=== PATIENT | female | born 1990 | race Hispanic/Latino ===

== ENCOUNTER 2019-12-22 22:48 | Emergency (ER) | payer BC, OTHER ==
--- OUTSIDE RECORDS SUMMARY | 2019-12-22 22:51 | XMS REPORT | Continuity of Care Document ---
:1990 Author Organization [facility] t Address [address] [place] [address] Care Team Providers Name Role Phone Unavailable Unavailable Unavailable Problems This patient has no known problems. Allergies, Adverse Reactions, Alerts This patient has no known allergies or adverse reactions. Medications This patient has no known medications. Procedures This patient has no known procedures. Encounters Start End Encounter Admission Attending Care Care Encounter Source Date/Time Date/Time Type Type Clinicians Facility Department ID 2018-11-02 Inpatient [facility] [id number] MHB L 12:24:57 2019-01-26 2019-01-26 Outpatient [facility] [id number] [facility]BL 08:19:00 08:19:00 2018-12-07 2018-12-07 Outpatient [facility] [id number] [facility]BL 17:56:00 17:56:00 2018-11-25 2018-11-25 Outpatient [facility]BL [id number] [facility]BL 13:24:00 13:24:00 2018-08-15 2018-08-15 Outpatient [facility] [id number] MHBL 09:15:00 09:15:00 Results This patient has no known results.
[2019-12-22 23:59] LABS: Urine Blood TRACE (NEG); Urine Glucose NEGATIVE (NEG); Urine Protein NEGATIVE (NEG)
[2019-12-23] MEDS ORDERED: METOCLOPRAMIDE 10 MG/2mL INJ ONE (00:01)
[2019-12-23] MEDS ORDERED: DIPHENHYDRAMINE 50 MG/ML VIAL ONE (00:01)
[2019-12-23] MEDS ORDERED: NA CHLORIDE 0.9% 1,000 ML ONE (00:02)
[2019-12-23] MEDS ORDERED: NA CHLORIDE 0.9% 50 ML IV ONE (00:02)
[2019-12-23 00:03] LABS: Absolute Lymphocytes (CBC) 3.4 K/uL (0.7-4.9); Basophils % 0.4 % (0-1.3); Hematocrit 39.8 % (36.0-45.0); Lymphocytes % 47.1 % (15.3-44.8); MPV 9.3 fL (7.6-11.3); RBC Red Blood Cell Count 4.33 M/uL (3.86-4.86)
[2019-12-23 00:20] LABS: ALT/SGPT 25 U/L (12-78); AST/SGOT 14 U/L (15-37); Albumin 4.1 g/dL (3.4-5.0); Alkaline Phosphatase 72 U/L (45-117); BUN Blood Urea Nitrogen 14 mg/dL (7-18); Bicarbonate 23 mmol/L (21-32); Bilirubin Direct < 0.1 mg/dL (0-0.2); Bilirubin Total 0.2 mg/dL (0.2-1.0); Glucose Level 96 mg/dL (74-106); Potassium 3.6 mmol/L (3.5-5.1); Protein, Total 8.2 g/dL (6.4-8.2); Sodium Level 140 mmol/L (136-145)
[2019-12-23 00:24] LABS: Blood Morphology Comment NOT SEEN (NOT SEEN); Platelet Estimate ADEQ
--- NOTE | 2019-12-23 01:57 | EDPHYS ---
Physician Documentation [facility] Name: Maddison Mccauley Age: 29 yrs Sex: Female : 1990 Arrival Date: 12/22/2019 Time: 22:51 Bed 16 Private MD: ED Physician Hilario Ross HPI: 12/22 00:07 This 29 yrs old Female presents to ER via Ambulatory with complaints of mh7 Headache. 00:07 The patient describes the headache as intermittent, throbbing, waxing and waning. mh7 Onset: The symptoms/episode began/occurred 2 week(s) ago. 00:08 The patient complains of pain to the left side of the back of head. Associated signs mh7 and symptoms: Pertinent positives: Photophobia Pertinent negatives: altered mental status, dizziness, fever, malaise, nausea, neck stiffness, paresthesias, rash, sinus congestion, sinus tenderness, vision changes, vision loss, vomiting, weakness, vertigo. Severity of symptoms: At its worst the pain was moderate, 5 day(s) ago, in the emergency department the pain has improved, moderately. Headache History: The patient has had previous headaches and this one is similar to previous episodes. The symptoms are alleviated by Darkened room, quiet, remaining still, the symptoms are aggravated by lights, movement, noise. The patient has experienced similar episodes in the past, multiple times. Historical: - Allergies: 12/21 23:06 clindamycin HCl; ls4 - Home Meds: 23:06 Excedrin Migraine 250-250-65 mg oral tab [Active]; ls4 - PMHx: 23:06 Migraines; Ovarian cyst; ls4 - PSHx: 23:06 tubes removed.; D \T\ C; ls4 - Immunization history:: Adult Immunizations up to date. - Social history:: Smoking status: Patient denies any tobacco usage or history of. ROS: 12/22 00:08 Constitutional: Negative for fever, chills, and weight loss, Eyes: Negative for injury, mh7 pain, redness, and discharge, ENT: Negative for injury, pain, and discharge, Neck: Negative for injury, pain, and swelling, Cardiovascular: Negative for chest pain, palpitations, and edema, Respiratory: Negative for shortness of breath, cough, wheezing, and pleuritic chest pain, Abdomen/GI: Negative for abdominal pain, nausea, vomiting, diarrhea, and constipation, Back: Negative for injury and pain, : Negative for injury, bleeding, discharge, and swelling, MS/Extremity: Negative for injury and deformity, Skin: Negative for injury, rash, and discoloration, Psych: Negative for depression, anxiety, suicide ideation, homicidal ideation, and hallucinations, Allergy/Immunology: Negative for hives, rash, and allergies, Endocrine: Negative for neck swelling, polydipsia, polyuria, polyphagia, and marked weight changes, Hematologic/Lymphatic: Negative for swollen nodes, abnormal bleeding, and unusual bruising. Exam: 00:08 Eyes: Pupils equal round and reactive to light, extra-ocular motions intact. Lids and mh7 lashes normal. Conjunctiva and sclera are non-icteric and not injected. Cornea within normal limits. Periorbital areas with no swelling, redness, or edema. ENT: Nares patent. No nasal discharge, no septal abnormalities noted. Tympanic membranes are normal and external auditory canals are clear. Oropharynx with no redness, swelling, or masses, exudates, or evidence of obstruction, uvula midline. Mucous membranes moist. Neck: Trachea midline, no thyromegaly or masses palpated, and no cervical lymphadenopathy. Supple, full range of motion without nuchal rigidity, or vertebral point tenderness. No Meningismus. Chest/axilla: Normal chest wall appearance and motion. Nontender with no deformity. No lesions are appreciated. Cardiovascular: Regular rate and rhythm with a normal S1 and S2. No gallops, murmurs, or rubs. Normal PMI, no JVD. No pulse deficits. Respiratory: Lungs have equal breath sounds bilaterally, clear to auscultation and percussion. No rales, rhonchi or wheezes noted. No increased work of breathing, no retractions or nasal flaring. Abdomen/GI: Soft, non-tender, with normal bowel sounds. No distension or tympany. No guarding or rebound. No evidence of tenderness throughout. Back: No spinal tenderness. No costovertebral tenderness. Full range of motion. Skin: Warm, dry with normal turgor. Normal color with no rashes, no lesions, and no evidence of cellulitis. MS/ Extremity: Pulses equal, no cyanosis. Neurovascular intact. Full, normal range of motion. Neuro: Awake and alert, GCS 15, oriented to person, place, time, and situation. Cranial nerves II-XII grossly intact. Motor strength 5/5 in all extremities. Sensory grossly intact. Cerebellar exam normal. Normal gait. Psych: Awake, alert, with orientation to person, place and time. Behavior, mood, and affect are within normal limits. 00:08 Constitutional: The patient appears in no acute distress, alert, awake, uncomfortable. 00:08 Head/face: Noted is tenderness, that is moderate, of the left side of the back of head. Vital Signs: 12/21 23:01 BP 142 / 104; Pulse 98; Resp 16; Temp 98.4(O); Pulse Ox 99% on R/A; Weight 83.91 kg; ls4 Height 5 ft. 2 in. (157.48 cm); Pain 6/10; 23:30 BP 132 / 102; Pulse 77; Resp 16; Pulse Ox 100% on R/A; vc 12/22 01:00 BP 117 / 89; Pulse 66; Resp 16; Pulse Ox 97% on R/A; vc 02:00 BP 116 / 90; Pulse 67; Resp 16; Pulse Ox 96% on R/A; vc 12/21 23:01 Body Mass Index 33.84 (83.91 kg, 157.48 cm) ls4 Marlene Coma Score: 01:55 Eye Response: spontaneous(4). Verbal Response: oriented(5). Motor Response: obeys mh7 commands(6). Total: 15. MDM: 12/21 23:31 Patient medically screened. mh7 12/22 01:55 Differential diagnosis: cluster headache, intracerebral hemorrhage, migraine, tension mh7 headache. Data reviewed: vital signs, nurses notes, old medical records, lab test result(s), CBC, electrolytes, urinalysis, radiologic studies, CT scan. Data interpreted: Pulse oximetry: on room air is 97 %. Interpretation: normal. Counseling: I had a detailed discussion with the patient and/or guardian regarding: the historical points, exam findings, and any diagnostic results supporting the discharge/admit diagnosis, lab results, radiology results, the need for outpatient follow up, a neurologist, to return to the emergency department if symptoms worsen or persist or if there are any questions or concerns that arise at home. Response to treatment: the patient's symptoms have resolved after treatment, the patient's blood pressure is in an acceptable range, mental status has returned to baseline, the patient no longer shows bradycardia, the patient is not short of breath, the patient is not tachycardic, the patient's pain is gone, the patient's temperature has normalized. 07:06 Response to treatment: the patient is now symptom free, patient is well hydrated. [facility] 12/21 23:34 Order name: CBC with Diff; Complete Time: 00:37 [facility] 12/21 23:34 Order name: Basic Metabolic Panel; Complete Time: 00:37 [facility] 12/21 23:34 Order name: LFT's; Complete Time: 00:37 [facility] 12/21 23:56 Order name: Urine Dipstick--Ancillary (enter results); Complete Time: 00:37 [facility] 12/21 23:56 Order name: Urine --Ancillary (enter results); Complete Time: 00:37 [facility] 12/22 00:08 Order name: Manual Differential; Complete Time: 00:37 [facility] 12/21 23:34 Order name: Urine Dipstick-Ancillary (obtain specimen); Complete Time: 23:56 [facility] 12/21 23:34 Order name: Urine Test (obtain specimen); Complete Time: 23:56 [facility] 12/21 23:34 Order name: CT Head Brain wo Cont [facility] Administered Medications: 12/21 23:51 Drug: NS 0.9% 1000 ml Route: IV; Rate: 1000 ml; Site: left antecubital; vc 23:51 Drug: Reglan 10 mg Route: IVP; Site: left antecubital; vc 23:51 Drug: Benadryl 50 mg Route: IVP; Site: left antecubital; vc Point of Care Testing: Urine : 23:56 hCG Reading: Negative; Control Reading: Positive; jp3 Disposition: 12/22 07:06 Co-signature as Attending Physician, Hilario Ross MD. 7 Disposition: 12/23/19 01:57 Discharged to Home. Impression: Headache. - Condition is Stable. - Discharge Instructions: General Headache Without Cause, [id number]. - Prescriptions for Fioricet 50- 325-40 mg Oral tablet - take 1 tablet by ORAL route every 6 hours As needed as needed not to exceed 6 tablets per 24hrs; 15 tablet. - Medication Reconciliation Form, Thank You Letter, Antibiotic Education, Prescription Opioid Use form. - Follow up: Elsa Umanzor MD; When: 1 - 2 days; Reason: Worsening of condition, Recheck today's complaints. Follow up: Kenny Green MD; When: 1 - 2 days; Reason: Worsening of condition, Recheck today's complaints. - Problem is an acute exacerbation. - Symptoms have improved. Signatures: Dispatcher [employer] EDMS Liz Noriega RN RN ls4 Mehnaz Connell RN RN vc Hilario Ross MD MD mh7 Corrections: (The following items were deleted from the chart) 00:09 00:07 The patient complains of pain to the left occipital area, 7 7 02:17 01:57 12/23/2019 01:57 Discharged to Home. Impression: Headache. Condition is Stable. vc Forms are Medication Reconciliation Form, Thank You Letter, Antibiotic Education, Prescription Opioid Use. Follow up: Elsa Umanzor; When: 1 - 2 days; Reason: Worsening of condition, Recheck today's complaints. Follow up: Kenny Green; When: 1 - 2 days; Reason: Worsening of condition, Recheck today's complaints. Problem is an acute exacerbation. Symptoms have improved. mh7
--- NOTE | 2019-12-23 01:57 | ER ---
Nurse's Notes [facility] Name: Maddison Mccauley Age: 29 yrs Sex: Female : 1990 Arrival Date: 12/22/2019 Time: 22:51 Bed 16 Private MD: Diagnosis: Headache Presentation: 12/21 23:01 Chief complaint: Patient states: Really bad headache for two weeks. sharp pain on left ls4 parietal area of head. Coronavirus screen: At this time, the client does not indicate any symptoms associated with coronavirus-19. Ebola Screen: No symptoms or risks identified at this time. Initial Sepsis Screen: Does the patient meet any 2 criteria? No. Patient's initial sepsis screen is negative. Does the patient have a suspected source of infection? No. Patient's initial sepsis screen is negative. Risk Assessment: Do you want to hurt yourself or someone else? Patient reports no desire to harm self or others. Onset of symptoms was December 08, 2019 at 10:00. 23:01 Method Of Arrival: Ambulatory ls4 23:01 Acuity: DEON 3 ls4 23:04 Note when the sharp pain hits she has sweat drip and her eye twitches. ls4 Triage Assessment: 23:06 Headache History: The patient has had previous headaches and this one is different than ls4 previous episodes. General: Appears uncomfortable, Behavior is calm, cooperative, flat. Pain: Pain currently is 6 out of 10 on a pain scale. Neuro: Level of Consciousness is Oriented to person, place, time, situation, Ultrasound Technologist Sonographer are equal bilaterally Moves all extremities. Gait is steady, Speech is normal, Facial symmetry appears normal, Reports headache in left parietal area, since 2 weeks. Respiratory: Airway is patent Respiratory effort is even, unlabored, Respiratory pattern is regular, Denies cough, shortness of breath labored breathing, pain with respiration, pain with cough, pain with movement. 23:15 Pain: Pain began 2 weeks ago Also complains of photophobia. vc Historical: - Allergies: 23:06 clindamycin HCl; ls4 - Home Meds: 23:06 Excedrin Migraine 250-250-65 mg oral tab [Active]; ls4 - PMHx: 23:06 Migraines; Ovarian cyst; ls4 - PSHx: 23:06 tubes removed.; D \T\ C; ls4 - Immunization history:: Adult Immunizations up to date. - Social history:: Smoking status: Patient denies any tobacco usage or history of. Screenin:15 Abuse screen: Denies threats or abuse. Nutritional screening: No deficits noted. vc Tuberculosis screening: No symptoms or risk factors identified. Fall Risk None identified. Assessment: 23:30 General: Appears in no apparent distress. uncomfortable, Behavior is calm, cooperative, vc appropriate for age. Pain: Complains of pain in left side of the back of head Pain does not radiate. Pain currently is 7 out of 10 on a pain scale. Quality of pain is described as dull, pressure. Neuro: Level of Consciousness is awake, alert, obeys commands, Oriented to person, place, time, situation. Cardiovascular: Capillary refill < 3 seconds Patient's skin is warm and dry. Respiratory: Airway is patent Respiratory effort is even, unlabored, Respiratory pattern is regular, symmetrical. GI: No signs and/or symptoms were reported involving the gastrointestinal system. : No signs and/or symptoms were reported regarding the genitourinary system. Reports. EENT:. Derm: Skin is intact, is healthy with good turgor. 12/22 00:30 Reassessment: Patient and/or family updated on plan of care and expected duration. Pain vc level reassessed. Patient states symptoms have improved. 01:26 Reassessment: Patient and/or family updated on plan of care and expected duration. Pain vc level reassessed. Patient is alert, oriented x 3, equal unlabored respirations, skin warm/dry/pink. Patient states symptoms have improved. 02:00 Reassessment: Patient and/or family updated on plan of care and expected duration. Pain vc level reassessed. Patient is alert, oriented x 3, equal unlabored respirations, skin warm/dry/pink. Patient states feeling better. Patient states symptoms have improved. Vital Signs: 12/21 23:01 BP 142 / 104; Pulse 98; Resp 16; Temp 98.4(O); Pulse Ox 99% on R/A; Weight 83.91 kg; ls4 Height 5 ft. 2 in. (157.48 cm); Pain 6/10; 23:30 BP 132 / 102; Pulse 77; Resp 16; Pulse Ox 100% on R/A; vc 12/22 01:00 BP 117 / 89; Pulse 66; Resp 16; Pulse Ox 97% on R/A; vc 02:00 BP 116 / 90; Pulse 67; Resp 16; Pulse Ox 96% on R/A; vc 12/21 23:01 Body Mass Index 33.84 (83.91 kg, 157.48 cm) ls4 Mazon Coma Score: 01:55 Eye Response: spontaneous(4). Verbal Response: oriented(5). Motor Response: obeys 7 commands(6). Total: 15. ED Course: 12/21 22:51 Patient arrived in ED. bp1 23:04 Triage completed. ls4 23:15 Arm band placed on. vc 23:15 Patient has correct armband on for positive identification. Bed in low position. Call vc light in reach. Pulse ox on. NIBP on. Warm blanket given. 23:17 Hilario Ross MD is Attending Physician. mh7 23:18 Mehnaz Connell, RN is Primary Nurse. vc 23:56 Urine collected: clean catch specimen, clear, yumiko colored. jp3 12/22 01:18 CT Head Brain wo Cont In Process Unspecified. EDMS 01:56 Elsa Umanzor MD is Referral Physician. mh7 01:56 Kenny Green MD is Referral Physician. 7 02:00 No provider procedures requiring assistance completed. IV discontinued, intact, vc bleeding controlled, No redness/swelling at site. Pressure dressing applied. Administered Medications: 12/21 23:51 Drug: NS 0.9% 1000 ml Route: IV; Rate: 1000 ml; Site: left antecubital; vc 23:51 Drug: Reglan 10 mg Route: IVP; Site: left antecubital; vc 23:51 Drug: Benadryl 50 mg Route: IVP; Site: left antecubital; vc Point of Care Testing: Urine : 23:56 hCG Reading: Negative; Control Reading: Positive; jp3 Outcome: 12/22 01:57 Discharge ordered by . mh7 02:15 Discharged to home ambulatory. vc 02:15 Condition: good 02:15 Discharge instructions given to patient, Instructed on discharge instructions, follow up and referral plans. medication usage, Demonstrated understanding of instructions, follow-up care, medications, Prescriptions given X 1. 02:17 Patient left the ED. vc Signatures: Dispatcher [employer] EDAR Hector Jacobson jp3 Liz Noriega RN RN ls4 Mehnaz Connell RN RN vc Kathleen Valentino Maurice, MD MD 7
--- NOTE | 2019-12-24 12:56 | RAD REPORT ---
EXAM DESCRIPTION: CT - Head Brain Wo Cont - 12/23/2019 5:50 am CLINICAL HISTORY: The patient is 29 years old and is Female; HEADACHE TECHNIQUE: Axial computed tomography images of the head/brain without intravenous contrast. Sagitt al and coronal reformatted images were created and reviewed. This CT exam was performed using one o r more of the following dose reduction techniques: automated exposure control, adjustment of the mA and/or kV according to patient size, and/or use of iterative reconstruction technique. COMPARISON: No relevant prior studies available. FINDINGS: BRAIN: Unremarkable. The holden-white matter differentiation is preserved . No hemorrhag e. No significant white matter disease. No edema. No extra-axial fluid collections. VENTRICLES: Unremarkable. No ventriculomegaly. BONES/JOINTS: No acute fracture. SOFT TISSUES: Unremarkable. SINUSES: Unremarkable as visualized. No acute sinusitis. MASTOID AIR CELLS: Unremarkable as visualized. No mastoid effusion. ORBITS: Unremarkable as visualized. IMPRESSION: No acute intracranial findings. Electronically signed by: Avis Rivero MD 12/23/2019 1:35 AM CDT Due to temporary technical issues with the PACS/Fluency reporting system, reports are being signed by the in house radiologist without review as a courtesy to ensure prompt reporting. The interpreting r adiologist is fully responsible for the content of the report.
[2019-12-26 10:15] VITALS: TEMP 98.4
[2019-12-26 10:18] VITALS: BP 117/89; O2SAT 97
== END 2019-12-23 02:17 | disposition home or self-care (01) ==
LOC: ER 22:48
DX: R51 Headache (principal); Z88.3 Allergy status to other anti-infective agents
CPT/HCPCS: 36415; 70450; 80048; 80076; 81003; 81025; 85025; 96374; 96375; 99284

== ENCOUNTER 2023-10-06 22:25 | Emergency (ER) | payer BC, SELFPAY ==
--- OUTSIDE RECORDS SUMMARY | 2023-10-06 22:45 | XMS REPORT | Continuity of Care Document ---
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 Quad .5 mL IM 6+ MO (FLUZONE/FLULAVAL/F LUARIX) Unknown Completed [facility] HPV9 Unknown Completed [facility] HPV9 Unknown Completed [facility] HPV Unknown Completed [facility] TDAP Unknown Completed [facility] Influenza Virus Vaccine Quad IM 3+ YRS Unknown Completed [facility] Influenza Virus Vaccine Quad .5 mL IM 6+ MO (FLUZONE/FLULAVAL/F LUARIX) Unknown Completed [facility] HPV9 Unknown Completed [facility] HPV9 Unknown Completed [facility] HPV Unknown Completed [facility] TDAP Unknown Completed [facility] Influenza Virus Vaccine Quad IM 3+ YRS Unknown Completed [facility] Influenza Virus Vaccine Quad .5 mL IM 6+ MO (FLUZONE/FLULAVAL/F LUARIX) Unknown Completed [facility] HPV9 Unknown Completed [facility] HPV9 Unknown Completed [facility] HPV Unknown Completed [facility] TDAP Unknown Completed [facility] Influenza Virus Vaccine Quad IM 3+ YRS Unknown Completed [facility] Influenza Virus Vaccine Quad .5 mL IM 6+ MO (FLUZONE/FLULAVAL/F LUARIX) Unknown Completed [facility] HPV9 [address] Completed [facility] HPV9 [address] Completed [facility] HPV Unknown Completed [facility] TDAP Unknown Completed [facility] Influenza Virus Vaccine Quad IM 3+ YRS Unknown Completed [facility] Influenza Virus Vaccine Quad .5 mL IM 6+ MO (FLUZONE/FLULAVAL/F LUARIX) Unknown Completed [facility] HPV9 Unknown Completed [facility] HPV9 Unknown Completed [facility] HPV Unknown Completed [facility] TDAP Unknown Completed [facility] Influenza Virus Vaccine Quad IM 3+ YRS Unknown Completed [facility] Influenza Virus Vaccine Quad .5 mL IM 6+ MO (FLUZONE/FLULAVAL/F LUARIX) Unknown Completed [facility] HPV9 [address] Completed [facility] HPV9 [address] Completed [facility] HPV Unknown Completed [facility] TDAP Unknown Completed [facility] Influenza Virus Vaccine Quad IM 3+ YRS Unknown Completed [facility] Influenza Virus Vaccine Quad .5 mL IM 6+ MO (FLUZONE/FLULAVAL/F LUARIX) Unknown Completed [facility] HPV9 Unknown Completed [facility] HPV9 [address] Completed [facility] HPV Unknown Completed [facility] TDAP Unknown Completed [facility] Influenza Virus Vaccine Quad IM 3+ YRS Unknown Completed [facility] Influenza Virus Vaccine Quad .5 mL IM 6+ MO (FLUZONE/FLULAVAL/F LUARIX) Unknown Completed [facility] HPV9 [address] Completed [facility] HPV9 [address] Com[address] [facility] HPV Unknown Completed [facility] TDAP Unknown Completed [facility] Influenza Virus Vaccine Quad IM 3+ YRS Unknown Completed [facility] Influenza Virus Vaccine Quad .5 mL IM 6+ MO (FLUZONE/FLULAVAL/F LUARIX) Unknown Completed [facility] HPV9 [address] Completed [facility] HPV9 [address] Completed [facility] HPV Unknown Completed [facility] TDAP Unknown Completed [facility] Influenza Virus Vaccine Quad IM 3+ YRS Unknown Completed [facility] Influenza Virus Vaccine Quad .5 mL IM 6+ MO (FLUZONE/FLULAVAL/F LUARIX) Unknown Completed [facility] HPV9 Unknown Completed [facility] HPV9 [address] Com[address] [facility] HPV Unknown Completed [facility] TDAP Unknown Completed [facility] Influenza Virus Vaccine Quad IM 3+ YRS Unknown Completed [facility] Influenza Virus Vaccine Quad .5 mL IM 6+ MO (FLUZONE/FLULAVAL/F LUARIX) Unknown Completed [facility] HPV9 [address] Completed [facility] HPV9 [address] Com[address] [facility] HPV Unknown Completed [facility] TDAP Unknown Completed [facility] Influenza Virus Vaccine Quad IM 3+ YRS Unknown Completed [facility] Influenza Virus Vaccine Quad .5 mL IM 6+ MO (FLUZONE/FLULAVAL/F LUARIX) Unknown Completed [facility] HPV9 [address] Com[address] [facility] HPV9 [address] Com[address] [facility] HPV Unknown Completed [facility] TDAP Unknown Completed [facility] Influenza Virus Vaccine Quad IM 3+ YRS Unknown Completed [facility] Influenza Virus Vaccine Quad .5 mL IM 6+ MO (FLUZONE/FLULAVAL/F LUARIX) Unknown Completed [facility] HPV9 [address] Com[address] [facility] HPV9 [address] [facility] HPV Unknown Completed [facility] TDAP Unknown Completed [facility] Influenza Virus Vaccine Quad IM 3+ YRS Unknown Completed [facility] Influenza Virus Vaccine Quad .5 mL IM 6+ MO (FLUZONE/FLULAVAL/F LUARIX) Unknown Completed [facility] HPV9 [address] Completed [facility] HPV9 [address] Com[address] [facility] HPV Unknown Completed [facility] TDAP Unknown Completed [facility] Influenza Virus Vaccine Quad IM 3+ YRS Unknown Completed [facility] Influenza Virus Vaccine Quad .5 mL IM 6+ MO (FLUZONE/FLULAVAL/F LUARIX) Unknown Completed [facility] HPV9 [address] Completed [facility] HPV9 [address] Com[address] [facility] HPV Unknown Completed [facility] TDAP Unknown Completed [facility] Influenza Virus Vaccine Quad IM 3+ YRS Unknown Completed [facility] Influenza Virus Vaccine Quad .5 mL IM 6+ MO (FLUZONE/FLULAVAL/F LUARIX) Unknown Completed [facility] HPV9 [address] Completed [facility] HPV9 [address] Com[address] [facility] HPV Unknown Completed [facility] TDAP Unknown Completed [facility] Influenza Virus Vaccine Quad IM 3+ YRS Unknown Completed [facility] Influenza Virus Vaccine Quad .5 mL IM 6+ MO (FLUZONE/FLULAVAL/F LUARIX) Unknown Completed [facility] HPV9 [address] Com[address] [facility] HPV9 [address] Com[address] [facility] HPV Unknown Completed [facility] TDAP Unknown Completed [facility] Influenza Virus Vaccine Quad IM 3+ YRS Unknown Completed [facility] Influenza Virus Vaccine Quad .5 mL IM 6+ MO (FLUZONE/FLULAVAL/F LUARIX) Unknown Completed [facility] HPV9 [address] Com[address] [facility] HPV9 [address] Com[address] [facility] HPV Unknown Completed [facility] TDAP Unknown Completed [facility] Influenza Virus Vaccine Quad IM 3+ YRS Unknown Completed [facility] Influenza Virus Vaccine Quad .5 mL IM 6+ MO (FLUZONE/FLULAVAL/F LUARIX) Unknown Completed [facility] HPV9 [address] Com[address] [facility] HPV9 [address] Com[address] [facility] HPV Unknown Completed [facility] TDAP Unknown Completed [facility] Influenza Virus Vaccine Quad IM 3+ YRS Unknown Completed [facility] Influenza Virus Vaccine Quad .5 mL IM 6+ MO (FLUZONE/FLULAVAL/F LUARIX) Unknown Completed [facility] HPV9 [address] Com[address] [facility] HPV9 [address] Com[address] [facility] HPV Unknown Completed [facility] TDAP Unknown Completed [facility] Influenza Virus Vaccine Quad IM 3+ YRS Unknown Completed [facility] Influenza Virus Vaccine Quad .5 mL IM 6+ MO (FLUZONE/FLULAVAL/F LUARIX) Unknown Completed [facility] HPV9 [address] Completed [facility] HPV9 [address] Com[address] [facility] HPV Unknown Completed [facility] TDAP Unknown Completed [facility] Influenza Virus Vaccine Quad IM 3+ YRS Unknown Completed [facility] Influenza Virus Vaccine Quad .5 mL IM 6+ MO (FLUZONE/FLULAVAL/F LUARIX) Unknown Completed [facility] HPV9 [address] Com[address] [facility] HPV9 [address] Com[address] [facility] HPV Unknown Completed [facility] TDAP Unknown Completed [facility] Influenza Virus Vaccine Quad IM 3+ YRS Unknown Completed [facility] Influenza Virus Vaccine Quad .5 mL IM 6+ MO (FLUZONE/FLULAVAL/F LUARIX) Unknown Completed [facility] HPV9 [address] Com[address] [facility] HPV9 [address] Com[address] [facility] HPV Unknown Completed [facility] TDAP Unknown Completed [facility] Influenza Virus Vaccine Quad IM 3+ YRS Unknown Completed [facility] Influenza Virus Vaccine Quad .5 mL IM 6+ MO (FLUZONE/FLULAVAL/F LUARIX) Unknown Completed [facility] HPV9 [address] Com[address] [facility] HPV9 [address] Com[address] [facility] HPV Unknown Completed [facility] TDAP Unknown Completed [facility] Influenza Virus Vaccine Quad IM 3+ YRS Unknown Completed [facility] Influenza Virus Vaccine Quad .5 mL IM 6+ MO (FLUZONE/FLULAVAL/F LUARIX) Unknown Completed [facility] HPV9 [address] Completed [facility] HPV9 [address] Completed [facility] HPV Unknown Completed [facility] TDAP Unknown Completed [facility] Influenza Virus Vaccine Quad IM 3+ YRS Unknown Completed [facility] Influenza Virus Vaccine Quad .5 mL IM 6+ MO (FLUZONE/FLULAVAL/F LUARIX) Unknown Completed [facility] HPV9 [address] Completed [facility] HPV9 [address] Completed [facility] HPV Unknown Completed [facility] TDAP Unknown Completed [facility] Vital Signs Vital Name Observation Time Observation Value Comments S ource Systolic blood pressure 2023-10-05 23:00:00 119 mm[Hg] [facility] Diastolic blood pressure 2023-10-05 23:00:00 84 mm[Hg] [facility] Heart rate 2023-10-05 23:00:00 75 /min [facility] Body temperature 2023-10-05 23:00:[address] [facility] Respiratory rate 2023-10-05 23:00:00 19 /min [facility] Oxygen saturation in Arterial blood by Pulse oximetry 2023-10-05 23:00:00 100 /min [facility] Body height 2023-10-05 20:41:00 154.9 cm [facility] Body weight 2023-10-05 20:41:00 65.772 kg [facility] BMI 2023-10-05 20:41:00 27.40 kg/m2 [facility] Diastolic blood pressure 2023-08-29 18:44:00 90 mm[Hg] [facility] Heart rate 2023-08-29 18:44:00 70 /min [facility] Body temperature 2023-08-29 18:44:[address] [facility] Respiratory rate 2023-08-29 18:44:00 20 /min [facility] Body height 2023-08-29 18:44:00 154.9 cm [facility] Body weight 2023-08-29 18:44:00 64.864 kg [facility] BMI 2023-08-29 18:44:00 27.02 kg/m2 [facility] Oxygen saturation in Arterial blood by Pulse oximetry 2023-08-29 18:44:00 100 /min [facility] Systolic blood pressure 2023-08-29 18:44:00 125 mm[Hg] [facility] Heart rate 2023-08-16 22:17:00 75 /min [facility] Respiratory rate 2023-08-16 22:17:00 17 /min [facility] Oxygen saturation in Arterial blood by Pulse oximetry 2023-08-16 22:17:00 100 /min [facility] Systolic blood pressure 2023-08-16 22:16:00 106 mm[Hg] [facility] Diastolic blood pressure 2023-08-16 22:16:00 51 mm[Hg] [facility] Body temperature 2023-08-16 21:06:[address] [facility] Body height 2023-08-16 15:52:00 154.9 cm [facility] Body weight 2023-08-16 15:52:00 64.411 kg [facility] BMI 2023-08-16 15:52:00 26.83 kg/m2 [facility] Systolic blood pressure 2023-08-16 16:00:00 116 mm[Hg] [facility] Diastolic blood pressure 2023-08-16 16:00:00 82 mm[Hg] [facility] Heart rate 2023-08-16 16:00:00 79 /min [facility] Body temperature 2023-08-16 16:00:[address] [facility] Respiratory rate 2023-08-16 16:00:00 15 /min [facility] Oxygen saturation in Arterial blood by Pulse oximetry 2023-08-16 16:00:00 94 /min [facility] Body height 2023-08-16 15:52:00 154.9 cm [facility] Body weight 2023-08-16 15:52:00 64.411 kg [facility] BMI 2023-08-16 15:52:00 26.83 kg/m2 [facility] Systolic blood pressure 2023-08-09 13:58:00 113 mm[Hg] [facility] Diastolic blood pressure 2023-08-09 13:58:00 81 mm[Hg] [facility] Heart rate 2023-08-09 13:58:00 81 /min [facility] Body temperature 2023-08-09 13:58:[address] [facility] Respiratory rate 2023-08-09 13:58:00 18 /min [facility] Body height 2023-08-09 13:58:00 154.9 cm [facility] Body weight 2023-08-09 13:58:00 66.316 kg [facility] BMI 2023-08-09 13:58:00 27.62 kg/m2 [facility] Oxygen saturation in Arterial blood by Pulse oximetry 2023-08-09 13:58:00 98 /min [facility] Systolic blood pressure 2023-08-08 20:42:00 128 mm[Hg] [facility] Diastolic blood pressure 2023-08-08 20:42:00 88 mm[Hg] [facility] Heart rate 2023-08-08 20:42:00 100 /min [facility] Respiratory rate 2023-08-08 20:42:00 18 /min [facility] Body height 2023-08-08 20:42:00 154.9 cm [facility] Body weight 2023-08-08 20:42:00 64.411 kg [facility] BMI 2023-08-08 20:42:00 26.83 kg/m2 [facility] Oxygen saturation in Arterial blood by Pulse oximetry 2023-08-08 20:42:00 100 /min [facility] Heart rate 2023-08-05 07:51:00 79 /min [facility] Body temperature 2023-08-05 07:51:[address] [facility] Oxygen saturation in Arterial blood by Pulse oximetry 2023-08-05 07:51:00 100 /min [facility] Systolic blood pressure 2023-08-05 07:00:00 114 mm[Hg] [facility] Diastolic blood pressure 2023-08-05 07:00:00 90 mm[Hg] [facility] Respiratory rate 2023-08-05 07:00:00 20 /min [facility] Body height 2023-08-05 04:07:00 154.9 cm [facility] Body weight 2023-08-05 04:07:00 65.772 kg [facility] BMI 2023-08-05 04:07:00 27.40 kg/m2 [facility] Systolic blood pressure 2023-07-12 09:00:00 102 mm[Hg] [facility] Diastolic blood pressure 2023-07-12 09:00:00 73 mm[Hg] [facility] Heart rate 2023-07-12 09:00:00 67 /min [facility] Respiratory rate 2023-07-12 09:00:00 18 /min [facility] Oxygen saturation in Arterial blood by Pulse oximetry 2023-07-12 09:00:00 99 /min [facility] Body height 2023-07-12 05:33:00 157.5 cm [facility] Body weight 2023-07-12 05:33:00 65.772 kg [facility] BMI 2023-07-12 05:33:00 26.52 kg/m2 [facility] Systolic blood pressure 2023-06-12 13:00:00 120 mm[Hg] [facility] Diastolic blood pressure 2023-06-12 13:00:00 95 mm[Hg] [facility] Heart rate 2023-06-12 13:00:00 66 /min [facility] Body temperature 2023-06-12 13:00:[address] [facility] Respiratory rate 2023-06-12 13:00:00 9 /min [facility] Oxygen saturation in Arterial blood by Pulse oximetry 2023-06-12 13:00:00 100 /min [facility] Body height 2023-06-12 07:46:00 154.9 cm [facility] Body weight 2023-06-12 07:46:00 65.772 kg [facility] BMI 2023-06-12 07:46:00 27.40 kg/m2 [facility] Systolic blood pressure 2023-04-02 23:10:00 111 mm[Hg] [facility] Diastolic blood pressure 2023-04-02 23:10:00 99 mm[Hg] [facility] Heart rate 2023-04-02 23:10:00 89 /min [facility] Respiratory rate 2023-04-02 23:10:00 16 /min [facility] Oxygen saturation in Arterial blood by Pulse oximetry 2023-04-02 23:10:00 99 /min [facility] Body temperature 2023-04-02 21:51:[address] [facility] Body height 2023-04-02 21:51:00 154.9 cm [facility] Body weight 2023-04-02 21:51:00 71.668 kg [facility] BMI 2023-04-02 21:51:00 29.85 kg/m2 [facility] Systolic blood pressure 2023-01-25 13:34:00 115 mm[Hg] [facility] Diastolic blood pressure 2023-01-25 13:34:00 81 mm[Hg] [facility] Heart rate 2023-01-25 13:34:00 93 /min [facility] Body temperature 2023-01-25 13:34:[address] [facility] Respiratory rate 2023-01-25 13:34:00 17 /min [facility] Body height 2023-01-25 13:34:00 157.5 cm [facility] Body weight 2023-01-25 13:34:00 83.689 kg [facility] BMI 2023-01-25 13:34:00 33.75 kg/m2 [facility] Systolic blood pressure 2022-12-16 21:15:00 126 mm[Hg] [facility] Diastolic blood pressure 2022-12-16 21:15:00 79 mm[Hg] [facility] Heart rate 2022-12-16 21:15:00 77 /min [facility] Respiratory rate 2022-12-16 21:15:00 18 /min [facility] Oxygen saturation in Arterial blood by Pulse oximetry 2022-12-16 21:15:00 100 /min [facility] Body temperature 2022-12-16 19:23:[address] [facility] Body height 2022-12-16 19:23:00 157.5 cm [facility] Body weight 2022-12-16 19:23:00 83.915 kg [facility] BMI 2022-12-16 19:23:00 33.84 kg/m2 [facility] Systolic blood pressure 2022-05-26 05:00:00 116 mm[Hg] [facility] Diastolic blood pressure 2022-05-26 05:00:00 87 mm[Hg] [facility] Heart rate 2022-05-26 05:00:00 85 /min [facility] Respiratory rate 2022-05-26 05:00:00 17 /min [facility] Oxygen saturation in Arterial blood by Pulse oximetry 2022-05-26 05:00:00 98 /min [facility] Body temperature 2022-05-26 02:18:[address] [facility] Body height 2022-05-26 02:18:00 154.9 cm [facility] Body weight 2022-05-26 02:18:00 86.183 kg [facility] BMI 2022-05-26 02:18:00 35.90 kg/m2 [facility] Systolic blood pressure 2022-02-12 23:57:00 142 mm[Hg] [facility] Diastolic blood pressure 2022-02-12 23:57:00 97 mm[Hg] [facility] Heart rate 2022-02-12 23:57:00 83 /min [facility] Body temperature 2022-02-12 23:57:[address] [facility] Respiratory rate 2022-02-12 23:57:00 20 /min [facility] Body height 2022-02-12 23:57:00 157.5 cm [facility] Body weight 2022-02-12 23:57:00 86.183 kg [facility] BMI 2022-02-12 23:57:00 34.75 kg/m2 [facility] Oxygen saturation in Arterial blood by Pulse oximetry 2022-02-12 23:57:00 97 /min [facility] Systolic blood pressure 2022-02-03 13:32:00 123 mm[Hg] [facility] Diastolic blood pressure 2022-02-03 13:32:00 90 mm[Hg] [facility] Heart rate 2022-02-03 13:32:00 91 /min [facility] Body temperature 2022-02-03 13:32:[address] [facility] Respiratory rate 2022-02-03 13:32:00 18 /min [facility] Body height 2022-02-03 13:32:00 157.5 cm [facility] Body weight 2022-02-03 13:32:00 86.183 kg [facility] BMI 2022-02-03 13:32:00 34.75 kg/m2 [facility] Systolic blood pressure 2021-12-24 00:34:00 131 mm[Hg] [facility] Diastolic blood pressure 2021-12-24 00:34:00 103 mm[Hg] [facility] Heart rate 2021-12-24 00:34:00 82 /min [facility] Body temperature 2021-12-24 00:34:[address] [facility] Respiratory rate 2021-12-24 00:34:00 18 /min [facility] Body height 2021-12-24 00:34:00 157.5 cm [facility] Body weight 2021-12-24 00:34:00 85.957 kg [facility] BMI 2021-12-24 00:34:00 34.66 kg/m2 [facility] Oxygen saturation in Arterial blood by Pulse oximetry 2021-12-24 00:34:00 100 /min [facility] Systolic blood pressure 2021-04-29 04:00:00 134 mm[Hg] [facility] Diastolic blood pressure 2021-04-29 04:00:00 102 mm[Hg] [facility] Heart rate 2021-04-29 04:00:00 84 /min [facility] Respiratory rate 2021-04-29 04:00:00 16 /min [facility] Oxygen saturation in Arterial blood by Pulse oximetry 2021-04-29 04:00:00 100 /min [facility] Body temperature 2021-04-29 02:59:[address] [facility] Body height 2021-04-29 02:59:00 157.5 cm [facility] Body weight 2021-04-29 02:59:00 86.183 kg [facility] BMI 2021-04-29 02:59:00 34.75 kg/m2 [facility] Systolic blood pressure 2021-02-25 02:21:00 119 mm[Hg] [facility] Diastolic blood pressure 2021-02-25 02:21:00 86 mm[Hg] [facility] Heart rate 2021-02-25 02:21:00 73 /min [facility] Respiratory rate 2021-02-25 02:21:00 11 /min [facility] Oxygen saturation in Arterial blood by Pulse oximetry 2021-02-25 02:21:00 97 /min [facility] Body temperature 2021-02-25 00:35:[address] [facility] Body height 2021-02-25 00:35:00 157.5 cm [facility] Body weight 2021-02-25 00:35:00 86.138 kg [facility] BMI 2021-02-25 00:35:00 34.73 kg/m2 [facility] Systolic blood pressure 2020-09-06 03:00:00 129 mm[Hg] [facility] Diastolic blood pressure 2020-09-06 03:00:00 89 mm[Hg] [facility] Heart rate 2020-09-06 03:00:00 78 /min [facility] Respiratory rate 2020-09-06 03:00:00 20 /min [facility] Oxygen saturation in Arterial blood by Pulse oximetry 2020-09-06 03:00:00 98 /min [facility] Body temperature 2020-09-06 01:44:[address] [facility] Body height 2020-09-06 01:44:00 157.5 cm [facility] Body weight 2020-09-06 01:44:00 83.915 kg [facility] BMI 2020-09-06 01:44:00 33.84 kg/m2 [facility] Procedures Procedure Date / Time Performed Performing Clinician Source CT THORACIC SPINE WO CONTRAST 2023-10-05 21:44:[address] [facility] CT CERVICAL SPINE WO CONTRAST 2023-10-05 21:43:[address] [facility] COMP. METABOLIC PANEL ([id number]) 2023-10-05 21:20:[address] [facility] CBC WITH DIFF 2023-10-05 21:20:00 Ed Acosta [facility] TIME OR (NON-REPORTABLE) 2023-08-16 20:29:[address] [facility] [place] TIME OR (NON-REPORTABLE) 2023-08-16 20:29:[address] [facility] LAPAROSCOPIC CHOLECYSTECTOMY 2023-08-16 18:37:[address] [facility] INTRAOPERATIVE CHOLANGIOGRAM 2023-08-16 18:37:[address] [facility] POCT TEST 2023-08-16 16:05:[address] [facility] POCT TEST 2023-08-16 16:05:[address] [facility] US GALL BLADDER 2023-08-05 06:45:11 [facility] CHEST 1 VW 2023-08-05 05:01:36 Jeanne Hernandez [facility] LIPASE 2023-08-05 04:31:00 Jeanne Hernandez [facility] TROPONIN I 2023-08-05 04:31:00 Jeanne Hernandez [facility] COMP. METABOLIC PANEL ([id number]) 2023-08-05 04:31:[address] [facility] CBC WITH DIFF 2023-08-05 04:31:00 Jeanne Hernandez [facility] TROPONIN I 2023-07-12 07:57:00 Rosa Lafleur [facility] POCT TEST 2023-07-12 05:50:[address] [facility] URINALYSIS 2023-07-12 05:49:00 Rosa Lafleur [facility] URINE DRUG (IMMUNOASSAY) - COMPREHENSIVE DRUG SCREEN W/O REFLEX 2023-07-12 05:49:[address] [facility] LIPASE 2023-07-12 05:32:00 Rosa Lafleur [facility] TROPONIN I 2023-07-12 05:32:00 Rosa Lafleur [facility] COMP. METABOLIC PANEL ([id number]) 2023-07-12 05:32:[address] [facility] ETHANOL 2023-07-12 05:32:00 Rosa Lafleur [facility] CBC WITH DIFF 2023-07-12 05:32:00 Rosa Lafleur [facility] N-TERMINAL PRO-BNP 2023-07-12 05:32:[address] [facility] TROPONIN I 2023-06-12 12:06:00 Mark Dominguez [facility] CT ABDOMEN PELVIS W CONTRAST 2023-06-12 10:31:[address] [facility] CT CHEST PULMONARY ANGIOGRAM 2023-06-12 10:31:[address] [facility] D-DIMER 2023-06-12 08:33:00 Mark Dominguez [facility] XR CHEST 1 VW 2023-06-12 08:17:01 Mark Dominguez [facility] LIPASE 2023-06-12 07:55:00 Mark Dominguez [facility] TROPONIN I 2023-06-12 07:55:00 Mark Dominguez [facility] COMP. METABOLIC PANEL ([id number]) 2023-06-12 07:55:[address] [facility] CBC WITH DIFF 2023-06-12 07:55:00 Mark Dominguez [facility] N-TERMINAL PRO-BNP 2023-06-12 07:55:[address] [facility] CONSENT/REFUSAL FOR DIAGNOSIS AND TREATMENT 2023-06-12 07:43:11 Doctor Unassigned, [place] [facility] POCT TEST 2023-04-02 23:10:[address] [facility] URINALYSIS 2023-04-02 23:03:00 Marylu Egan [facility] COMP. METABOLIC PANEL ([id number]) 2023-04-02 22:44:00 [facility] 2023-04-02 22:44:00 Marylu Egan [facility] RAPID STREP SCREEN FOR GROUP A 2023-04-02 22:31:00 Jignesh [facility] RAPID INFLUENZA A/B 2023-04-02 22:31:[address] [facility] COVID-19 (ID NOW RAPID TESTING) 2023-04-02 22:31:[address] [facility] CONSENT/REFUSAL FOR DIAGNOSIS AND TREATMENT 2023-04-02 21:27:50 Doctor Unassigned, [place] [facility] GARDASIL 9 (HPV 9V) VACCINE 2023-01-25 13:55:[address] [facility] POCT TEST 2023-01-25 00:00:[address] [facility] CT CHEST PULMONARY ANGIOGRAM 2022-12-16 22:41:[address] [facility] LIPASE 2022-12-16 21:11:00 Rober Root [facility] MAGNESIUM 2022-12-16 21:11:[facility] TROPONIN I 2022-12-16 21:11:00 [facility] COMP. METABOLIC PANEL ([id number]) 2022-12-16 21:11:[address] [facility] CBC WITH DIFF 2022-12-16 21:11:00 Singer [facility] D-DIMER 2022-12-16 21:11:00 [facility] N-TERMINAL PRO-BNP 2022-12-16 21:11:[address] [facility] ASSIGNMENT OF BENEFITS 2022-12-16 20:04:59 Docto r Unassigned, [place] [facility] CONSENT/REFUSAL FOR DIAGNOSIS AND TREATMENT 2022-12-16 19:04:06 Doctor Unassigned, [place] [facility] EKG-12 LEAD 2022-05-26 05:46:51 Mark Dominguez [facility] ACUTE CARE ARTERIAL BLOOD GAS 2022-05-26 03:33:[address] [facility] COMP. METABOLIC PANEL ([id number]) 2022-05-26 03:21:[address] [facility] CBC WITH DIFF 2022-05-26 03:21:00 Mark Dominguez [facility] NOTICE OF PRIVACY PRACTICES 2022-05-26 02:07:57 Doctor Unassigned, [place] [facility] CONSENT/REFUSAL FOR DIAGNOSIS AND TREATMENT 2022-05-26 02:06:45 Doctor Unassigned, [place] [facility] XR ANKLE 3+ VW LEFT 2022-02-13 00:48:[address] [facility] CONSENT/REFUSAL FOR DIAGNOSIS AND TREATMENT 2022-02-12 23:44:37 Doctor Unassigned, [place] [facility] GARDASIL 9 (HPV 9V) VACCINE 2022-02-03 15:32:[address] [facility] ASSIGNMENT OF BENEFITS 2022-02-03 13:16:57 Docto r Unassigned, [place] [facility] COVID-19 (ID NOW RAPID TESTING) 2021-12-24 01:19:[address] [facility] CONSENT/REFUSAL FOR DIAGNOSIS AND TREATMENT 2021-12-24 00:26:20 Doctor Unassigned, [place] [facility] XR CHEST 2 2021-04-29 04:35:57 Neha Goldstein [facility] POCT TEST 2021-04-29 03:25:[address] [facility] URINALYSIS 2021-04-29 03:04:00 Neha Goldstein [facility] NOTICE OF PRIVACY PRACTICES 2021-04-29 02:43:48 Doctor Unassigned, [place] [facility] CONSENT/REFUSAL FOR DIAGNOSIS AND TREATMENT 2021-04-29 02:43:29 Doctor Unassigned, [place] [facility] XR CERVICAL SPINE 2 2021-02-25 01:31:[address] [facility] CONSENT/REFUSAL FOR DIAGNOSIS AND TREATMENT 2021-02-25 00:25:21 Doctor Unassigned, [place] [facility] CT HEAD WO CONTRAST 2020-09-06 02:34:[address] [facility] POCT TEST 2020-09-06 02:17:[address] [facility] NOTICE OF PRIVACY PRACTICES 2020-09-06 01:38:24 Doctor Unassigned, [place] [facility] CONSENT/REFUSAL FOR DIAGNOSIS AND TREATMENT 2020-09-06 01:35:15 Doctor Unassigned, [place] [facility] Plan of Care Planned Activity Planned Date Details Comments Source Medication 2029-05-24 06:00:00 ceFAZolin (ANCEF) 1,000 mg in NaCl 0.9% (NS) 100 mL MINI-BAG [code = 824382433] [facility] Encounters Start Date/Time End Date/Time Encounter Type Admission Type Attending Clinicians Care Facility Care Department Encounter ID Source 2021-02-22 19:15:[address] [facility] [id number] [facility] 2023-10-05 15:38:00 2023-10-05 18:35:00 Emergency X ED ACOSTA [facility] ERT [id number] [facility] 2023-10-05 15:38:00 2023-10-05 18:35:00 Emergency Ed Acosta [facility] 1.2.840.114 350.1.13.10 4.2.7.2.686 [id number] [facility] 2023-08-14 00:00:00 2023-09-17 18:09:19 Patient Secure Alo Brooke [facility] 1.2.840.114 350.1.13.10 4.2.7.2.686 [id number] [facility] 2023-08-29 13:30:00 2023-08-29 14:20:45 Outpatient R ZONIA LEIGH [facility] [id number] [facility] 2023-08-29 13:30:00 2023-08-29 14:20:45 Office Visit LeighZonia dawkins [facility] 1.2.840.114 350.1.13.10 4.2.7.2.686 [id number] [facility] 2023-08-17 00:00:00 2023-08-17 00:00:00 Telephone Zonia Leigh [facility] 1.2.840.114 350.1.13.10 4.2.7.2.686 [id number] [facility] 2023-08-16 10:46:00 2023-08-16 17:32:00 Outpatient R ZONIA LEIGH [facility] ISAI [id number] [facility] 2023-08-16 10:46:00 2023-08-16 17:32:00 Hospital Encounter Zonia Leigh [facility] 1.2.840.114 350.1.13.10 4.2.7.2.686 [id number] [facility] 2023-08-16 11:30:00 2023-08-16 14:31:00 Surgery Zonia Leigh [facility] 1.2.840.114 350.1.13.10 4.2.7.2.686 [id number] [facility] 2023-08-12 15:55:25 2023-08-12 23:59:00 [facility] [id number] [facility] 2023-08-12 15:55:25 2023-08-12 23:59:00 Hospital Encounter [facility] 1..840.114 350.1.13.10 4.2.7.2.686 [id number] [facility] 2023-08-09 09:00:00 2023-08-09 09:20:37 Out[facility] [id number] [facility] 2023-08-09 09:00:00 2023-08-09 09:20:37 Office Visit [facility] 1.2.840.114 350.1.13.10 4.2.7.2.686 [id number] [facility] 2023-08-08 15:45:00 2023-08-08 16:44:28 Outpatient R ZONIA LEIGH [facility] [id number] [facility] 2023-08-08 15:45:00 2023-08-08 16:44:28 Office Visit Zonia Leigh [facility] 1.2.840.114 350.1.13.10 4.2.7.2.686 [id number] [facility] 2023-08-08 00:00:00 2023-08-08 00:00:00 Telephone Zonia Leigh [facility] 1.2840.114 350.1.13.10 4.2.7.2.686 [id number] [facility] 2023-08-04 23:05:00 2023-08-05 03:03:00 Emergency X JEANNE HERNANDEZ [facility] ERT [id number] [facility] 2023-08-04 23:05:00 2023-08-05 03:03:00 Emergency Jeanne Hernandez [facility] 1.0.114 350.1.13.10 4.2.7.2.686 [id number] [facility] 2023-07-12 00:35:00 2023-07-12 04:15:00 Emergency X ROSA LAFLEUR [facility] ERT [id number] [facility] 2023-07-12 00:35:00 2023-07-12 04:15:00 Emergency Rosa Lafleur [facility] 1.0.114 350.1.13.10 4.2.7.2.686 [id number] [facility] 2023-07-12 00:00:00 2023-07-12 00:00:00 Patient Secure Msg Doctor Unassigned, [place] [facility] 1.840.114 350.1.13.10 4.2.7.2.686 [id number] [facility] 2023-06-12 01:48:00 2023-06-12 07:11:00 Emergency X MARK DOMINGUEZ [facility] ERT [id number] [facility] 2023-06-12 01:48:00 2023-06-12 07:11:00 Emergency Mark Dominguez [facility] 1.840.114 350.1.13.10 4.2.7.2.686 [id number] [facility] 2023-04-02 15:55:00 2023-04-02 19:51:00 Emergency X MARYLU EGAN [facility] ERT [id number] [facility] 2023-04-02 15:55:00 2023-04-02 19:51:00 Emergency Marylu Egan [facility] 1.840.114 350.1.13.10 4.2.7.2.686 [id number] [facility] 2023-01-25 08:30:00 2023-01-25 09:32:52 Outpatient R MARIO ZIMMERMAN [facility] [id number] [facility] 2023-01-25 08:30:00 2023-01-25 09:32:52 Office Visit Mario Zimmerman [facility] 1.840.114 350.1.13.10 4.2.7.2.686 [id number] [facility] 2022-12-16 14:25:00 2022-12-16 18:27:00 Emergency X ROBER ROOT [facility] ERT [id number] [facility] 2022-12-16 14:25:00 2022-12-16 18:27:00 Emergency Rober Root [facility] 1.840.114 350.1.13.10 4.2.7.2.686 [id number] [facility] 2022-06-09 09:30:00 2022-06-09 09:30:00 Outpatient R MARIO ZIMMERMAN [facility] [id number] [facility] 2022-05-25 20:22:00 2022-05-26 00:08:00 Emergency X MARK DOMINGUEZ [facility] ERT [id number] [facility] 2022-05-25 20:22:00 2022-05-26 00:08:00 Emergency Mark Dominguez [facility] 1.2.840.114 350.1.13.10 4.2.7.2.686 [id number] [facility] 2022-03-03 00:00:00 2022-03-03 00:00:00 Telephone Yumiko Bobo [facility] 1.840.114 350.1.13.10 4.2.7.2.686 [id number] [facility] 2022-02-12 19:17:00 2022-02-12 21:00:00 Emergency X ROSA LAFLEUR [facility] ERT [id number] [facility] 2022-02-12 19:17:00 2022-02-12 21:00:00 Emergency Rosa Lafleur [facility] 1.2840.114 350.1.13.10 4.2.7.2.686 [id number] [facility] 2022-02-03 08:15:00 2022-02-03 09:49:10 Outpatient R YUMIKO BOBO [facility] [id number] [facility] 2022-02-03 08:15:00 2022-02-03 09:49:10 Office Visit Yumiko Bobo [facility]ERNAL [facility]ILD [facility] 1.840.114 350.1.13.10 4.2.7.2.686 [id number] [facility] 2022-02-03 00:00:00 2022-02-03 00:00:00 Orders Only Doctor Unassigned, [place] [facility] 1.2.840.114 350.1.13.10 4.2.7.2.686 [id number] [facility] 2021-12-23 19:37:00 2021-12-23 20:57:00 Emergency X Bri GALINDO [facility] ERT [id number] [facility] 2021-12-23 19:37:00 2021-12-23 20:57:00 Emergency Bri Galindo [facility] 1.2.840.114 350.1.13.10 4.2.7.2.686 [id number] [facility] 2021-04-29 00:00:00 2021-04-29 00:00:00 Telephone Charisse Mcgill [facility] 1.2.840.114 350.1.13.10 4.2.7.2.686 [id number] [facility] 2021-04-28 21:05:00 2021-04-28 23:05:00 Emergency X NEHA GOLDSTEIN [facility] ERT [id number] [facility] 2021-04-28 21:05:00 2021-04-28 23:05:00 Emergency Neha Goldstein [facility] 1.2.840.114 350.1.13.10 4.2.7.2.686 [id number] [facility] 2021-03-03 13:30:00 2021-03-03 13:30:00 Outpatient JOSE DU [facility] [id number] [facility] 2021-02-24 19:44:00 2021-02-24 21:50:00 Emergency X KAISER BOLDEN [facility] ERT [id number] [facility] 2021-02-24 19:44:00 2021-02-24 21:50:00 Emergency Kaiser Bolden [facility] 1.2.840.114 350.1.13.10 4.2.7.2.686 [id number] [facility] 2020-09-05 20:39:00 2020-09-05 22:11:00 Emergency Jeanne Hernandez [facility] 1.2.840.114 350.1.13.10 4.2.7.2.686 [id number] [facility] 2020-09-05 00:00:00 2020-09-05 00:00:00 Orders Only Doctor Unassigned, [place] [facility] 1.2.840.114 350.1.13.10 4.2.7.2.686 [id number] [facility] 2020-05-20 16:39:33 2020-05-20 16:59:33 Laboratory Only Lab, Adc Fam Pob I Emeli Moreno [facility] 1.2840.114 350.1.13.10 4.2.7.2.686 [id number] [facility] 2020-05-20 16:40:00 2020-05-20 16:40:00 Outpatient R EMELI MORENO [facility] [id number] [facility] 2020-02-25 00:00:00 2020-02-25 00:00:[address] [facility] 1.2.840.114 350.1.13.10 4.2.7.2.686 [id number] [facility] 2020-02-25 00:00:00 2020-02-25 00:00:[address] [facility] 1.2840.114 350.1.13.10 4.2.7.2.686 [id number] 2020-01-22 18:47:44 2020-01-22 19:07:44 Laboratory Only Lab, Adc Fam Pob I Arjun Dione [facility] 1.0.114 350.1.13.10 4.2.7.2.686 [id number] [facility] 2020-01-22 18:47:44 2020-01-22 19:07:44 Laboratory Only Lab, Adc Fam b I [facility] 1..114 350.1.13.10 4.2.7.2.686 [id number] 2020-01-22 19:00:00 2020-01-22 19:00:00 Outpatient R ARJUN DIONE [facility] [id number] [facility] Results Test Description Test Time Test Comments Results Result Co mments Source [facility] with [id number] 22:05:51* Test Item Value Reference Range Interpretation Comme nts WBC (test code = 6690-2) 7.08 4.30-11.10 RBC (test code = 789-8) 4.15 3.93-5.25 HGB (test code = 718-7) 13.2 g/dL 11.6-15.0 HCT (test code = 4544-3) 39.2 % 35.7-45.2 MCV (test code = 787-2) 94.5 fL 80.6-95.5 MCH (test code = 785-6) 31.8 pg 25.9-32.8 MCHC (test code = 786-4) 33.7 g/dL 31.6-35.1 RDW-SD (test code = 23967-3) 43.1 fL 39.0-49.9 RDW-CV (test code = 788-0) 12.4 % 12.0-15.5 PLT (test code = 777-3) 188 166-358 MPV (test code = 74894-3) 10.9 fL 9.5-12.9 NRBC/100 WBC (test code = 4381082656) 0.0 0.0-10.0 NRBC x10^3 (test code = 6372211626) See_Comment [Automated me ssage] The system which generated this result transmitted reference range: 10*3/?L. The reference range was not used to interpret this result as normal/abnormal. GRAN MAT (NEUT) % (test code = 770-8) 49.7 % IMM GRAN % (test code = 8395733764) 0.30 % LYMPH % (test code = 736-9) 41.9 % MONO % (test code = 5905-5) 5.4 % EOS % (test code = 713-8) 2.3 % BASO % (test code = 706-2) 0.4 % GRAN MAT x10^3(ANC) (test code = 5259853841) 3.52 10*3/uL 1.88-7.09 IMM GRAN x10^3 (test code = 6421660699) 0.00-0.06 LYMPH x10^3 (test code = 731-0) 2.97 10*3/uL 1.32-3.29 MONO x10^3 (test code = 742-7) 0.38 10*3/uL 0.33-0.92 EOS x10^3 (test code = 711-2) 0.16 10*3/uL 0.03-0.39 BASO x10^3 (test code = 704-7) 0.03 10*3/uL 0.01-0.07 [facility] CERVICAL SPINE WO [id number] 21:49:21HISTORY:Neck trauma, dangerous injury mechanism (Age 16-64y) TECHNIQUE: CT of the cervical and thoracic spine was performed without IVcontrast. COMPARISON:04/02/2023. FINDINGS: Cervical spine: Straightening of the cervical lordosis with preserved sagittal alignment.The vertebral body heights are main tained. No significant degenerativechanges. No acute osseous findings. The craniocervical junctionsareintact. Thoracic spine: There is normal thoracic kyphosis and sagittal alignment. The vertebralbody heights are maintained. No acute fractures are seen. No significantdegenerative changes.[facility] THORACIC SPINE WO [id number] 21:49:21HISTORY:Neck trauma, dangerous injury mechanism (Age 16-64y) TECHNIQUE: CT of the cervical and thoracic spine was performed without IVcontrast. COMPARISON:04/02/2023. FINDINGS: Cervical spine: Straightening of the cervical lordosis with preserved sagittal alignment.The vertebral body heights are maintained. No significant degenerativechanges. No acute osseous findings. The craniocervical junctions areintact. Thoracic spine: There is normal thoracic kyphosis and sagittal alignment. The vertebralbody heights are maintained. No acute fractures are seen. No significantdegenerative changes.[facility] TIME OR (NON-REPORTABLE)2023-08-16 20:31:05These images do not require a Radiology diagnostic report.[facility] TIME OR (NON-REPORTABLE)2023-08-16 20:31:05These images do not require a Radiology diagnostic report.[facility] 16:05:00* Test Item Value Reference Range Interpretation Comme nts POCT PREG (test code = 1605) Negative On board controls acceptable with C Line (test code = 3574) Yes POCT PREG LOT # (test code = 3575) [id number] POCT PREG TEST DATE ( test code = 3576) [facility]29[facility]2024 [facility] [id number] 16:05:00* Test Item Value Reference Range Interpretation Comme nts POCT PREG (test code = 1605) Negative On board controls acceptable with C Line (test code = 3574) Yes POCT PREG LOT # (test code = 3575) [id number] POCT PREG TEST DATE ( test code = 3576) 01-29-2024 [facility] [id number] 07:36:39Ordering physician: JEANNE HERNANDEZ Indication: Right upper quadrant pain Comparison: CT of the abdomen and pelvis dated 06/12/2023 Technique: Grayscale and color Doppler images of the right upper quadrantwere performed. Findings: The visualized aorta and IVC are normal in caliber. There isnormal color-flow in the main portal vein, with a normal vascular waveform.There is normal echogenicity in the liver, without definite focal lesion.The visualized pancreas is within normal limits. There are shadowing stones in the gallbladder without wall edema orsonographic Nielsen's sign. The common bile duct is nondilated at [address] 1 [id number] 06:06:16Ordering physician: JEANNE HERNANDEZ Indication: Chest pain Comparison: Chest dated 07/12/2023 Technical quality: Adequate Findings: Single AP view of the chest. The cardiopericardial silhouette iswithin normal limits. The lungs are clear bilaterally. The visualized bonythorax is intact.[facility] 2023-08-05 05:40:46* Test Item Value Reference Range Interpretation Comme nts TROPONIN I (test code = 4856472865) 0.000 ng/mL <=0.034 LUANN (test code = LUANN) Reference (Normal) Range (defined by the 99th percentile reference limit): <= 0.034 ng/mL Note: Cardiac troponin begins to rise 3-4 hours after the onset of ischemia. Repeat in 4-6 hours if the sample was drawn within 3-4 hours of the onset of the symptom and found normal. Diagnosis of myocardial injury is made with acute changes in cTn concentrations with at least one serial sample above the 99th percentile upper reference limit (URL), taken together with the patient's clinical presentation. Biotin has been reported to cause a negative bias, interpret results relative to patient's use of biotin. Lab Interpretation (test code = 66023-5) Normal [facility]OLIC PANEL (90395)2023-08-05 05:29:47* Test Item Value Reference Range Interpretation Comme nts NA (test code = 7338602917) 141 mmol/L 135-145 K (test code = 5592209367) 3.9 mmol/L 3.5-5.0 CL (test code = 5333763073) 105 mmol/L 98-108 CO2 TOTAL (test code = 3721662981) 23 mmol/L 23-31 AGAP (test code = 9697752973) 13 2-16 BUN (test code = 0058784190) 11 mg/dL 7-23 GLUCOSE (test code = 8855672848) 99 mg/dL 70-110 CREATININE (test code = 2160-0) 0.61 mg/dL 0.50-1.04 TOTAL BILI (test code = 7764553852) 0.8 mg/dL 0.1-1.1 CALCIUM (test code = 4031847843) 8.6 mg/dL 8.6-10.6 T PROTEIN (test code = 1094377417) 8.0 g/dL 6.3-8.2 ALBUMIN (test code = 0917426167) 4.1 g/dL 3.5-5.0 ALK PHOS (test code = 6430764558) 80 U/L 34-122 ALTv (test code = 1742-6) 44 U/L 5-35 H AST(SGOT) (test code = 2464218806) 95 U/L 13-40 H eGFR (test code = 22345-4) 122.0 mL/min/1.73m2 CKD-EPI eGFR (2020). Assuming creatinine has been stable day-to-day for at least three months, the eGFR indicates Category G1 (>= 90 mL/min/1.73 m2) Lab Interpretation (test code = 72093-6) Abnormal [facility]2024-[facility] 05:29:06* Test Item Value Reference Range Interpretation Comme nts LIPASE (test code = 7486741578) 126 U/L 0-220 Lab Interpretation (test cod e = 89954-7) Normal [facility] WITH [id number] 05:19:28* Test Item Value Reference Range Interpretation Comme nts WBC (test code = 6690-2) 11.48 4.30-11.10 H RBC (test code = 789-8) 4.16 3.93-5.25 HGB (test code = 718-7) 13.2 g/dL 11.6-15.0 HCT (test code = 4544-3) 38.1 % 35.7-45.2 MCV (test code = 787-2) 91.6 fL 80.6-95.5 MCH (test code = 785-6) 31.7 pg 25.9-32.8 MCHC (test code = 786-4) 34.6 g/dL 31.6-35.1 RDW-SD (test code = 27719-6) 41.1 fL 39.0-49.9 RDW-CV (test code = 788-0) 12.5 % 12.0-15.5 PLT (test code = 777-3) 247 166-358 MPV (test code = 98609-1) 10.7 fL 9.5-12.9 NRBC/100 WBC (test code = 5827841828) 0.0 0.0-10.0 NRBC x10^3 (test code = 4570393614) See_Comment [Automated messa ge] The system which generated this result transmitted reference range: 10*3/?L. The reference range was not used to interpret this result as normal/abnormal. GRAN MAT (NEUT) % (test code = 770-8) 66.3 % IMM GRAN % (test code = 5827709716) 0.40 % LYMPH % (test code = 736-9) 24.5 % MONO % (test code = 5905-5) 6.8 % EOS % (test code = 713-8) 1.7 % BASO % (test code = 706-2) 0.3 % GRAN MAT x10^3(ANC) (test code = 6769461392) 7.62 10*3/uL 1.88-7.09 H IMM GRAN x10^3 (test code = 5196502879) 0.05 10*3/uL 0.00-0.06 LYMPH x10^3 (test code = 731-0) 2.81 10*3/uL 1.32-3.29 MONO x10^3 (test code = 742-7) 0.78 10*3/uL 0.33-0.92 EOS x10^3 (test code = 711-2) 0.19 10*3/uL 0.03-0.39 BASO x10^3 (test code = 704-7) 0.03 10*3/uL 0.01-0.07 Lab Interpretation (test code = 67056-2) Abnormal [facility] HospitalETHANOL2024-03-19 06:47:45 ALCOHOL<10mg/dL07/12/2023 1:47 AM CDTANCONNE[facility]IC[facility]<10 Igbfalnc74-008 Toxic>100 Depression of [employer]INTER>400 Fatalities ReportedUnCHRISTUS Mother Frances Hospital – Sulphur SpringsJEREMY [id number] 06:47:05* Test Item Value Reference Range Interpretation Comme nts TROPONIN I (test code = 7475784065) 0.003 ng/mL <=0.034 LUANN (test code = LUANN) Reference (Normal) Range (defined by the 99th percentile reference limit): <= 0.034 ng/mL Note: Cardiac troponin begins to rise 3-4 hours after the onset of ischemia. Repeat in 4-6 hours if the sample was drawn within 3-4 hours of the onset of the symptom and found normal. Diagnosis of myocardial injury is made with acute changes in cTn concentrations with at least one serial sample above the 99th percentile upper reference limit (URL), taken together with the patient's clinical presentation. Biotin has been reported to cause a negative bias, interpret results relative to patient's use of biotin. Lab Interpretation (test code = 96989-9) Normal [facility]MINAL [id number] 06:44:43* Test Item Value Reference Range Interpretation Comme nts NT-proBNP (test code = 23563-9) 33 pg/mL <=125 Lab Interpretation (test cod e = 53242-3) Normal [facility]COMP[facility] METABOLIC PANEL ([id number])2023-07-12 06:35:02* Test Item Value Reference Range Interpretation Comme nts NA (test code = 1218777151) 138 mmol/L 135-145 K (test code = 8033196919) 3.3 mmol/L 3.5-5.0 L CL (test code = 5820515387) 109 mmol/L 98-108 H CO2 TOTAL (test code = 2890348004) 20 mmol/L 23-31 L AGAP (test code = 4853783109) 9 2-16 BUN (test code = 6973543129) 14 mg/dL 7-23 GLUCOSE (test code = 1856969185) 119 mg/dL 70-110 H CREATININE (test code = 2160-0) 0.74 mg/dL 0.50-1.04 TOTAL BILI (test code = 8022836617) 0.6 mg/dL 0.1-1.1 CALCIUM (test code = 5554468992) 8.9 mg/dL 8.6-10.6 T PROTEIN (test code = 7318612667) 7.9 g/dL 6.3-8.2 ALBUMIN (test code = 8943470640) 4.4 g/dL 3.5-5.0 ALK PHOS (test code = 8377338743) 73 U/L 34-122 ALTv (test code = 1742-6) 61 U/L 5-35 H AST(SGOT) (test code = 2731930505) 127 U/L 13-40 H eGFR (test code = 62134-2) 110.4 mL/min/1.73m2 CKD-EPI eGFR (2020). Assuming creatinine has been stable day-to-day for at least three months, the eGFR indicates Category G1 (>= 90 mL/min/1.73 m2) Lab Interpretation (test code = 63635-7) Abnormal [facility]2024-[facility]-19 06:34:42* Test Item Value Reference Range Interpretation Comme nts LIPASE (test code = 1781144851) 161 U/L 0-220 Lab Interpretation (test cod e = 50210-3) Normal [facility] WITH [id number] 06:19:14* Test Item Value Reference Range Interpretation Comme nts WBC (test code = 6690-2) 8.94 4.30-11.10 RBC (test code = 789-8) 4.08 3.93-5.25 HGB (test code = 718-7) 12.7 g/dL 11.6-15.0 HCT (test code = 4544-3) 37.1 % 35.7-45.2 MCV (test code = 787-2) 90.9 fL 80.6-95.5 MCH (test code = 785-6) 31.1 pg 25.9-32.8 MCHC (test code = 786-4) 34.2 g/dL 31.6-35.1 RDW-SD (test code = 02632-7) 42.0 fL 39.0-49.9 RDW-CV (test code = 788-0) 12.9 % 12.0-15.5 PLT (test code = 777-3) 204 166-358 MPV (test code = 75423-6) 10.8 fL 9.5-12.9 NRBC/100 WBC (test code = 5036715689) 0.0 0.0-10.0 NRBC x10^3 (test code = 5163993922) See_Comment [Automated me ssage] The system which generated this result transmitted reference range: 10*3/?L. The reference range was not used to interpret this result as normal/abnormal. GRAN MAT (NEUT) % (test code = 770-8) 57.1 % IMM GRAN % (test code = 9976823712) 0.30 % LYMPH % (test code = 736-9) 36.1 % MONO % (test code = 5905-5) 5.0 % EOS % (test code = 713-8) 1.3 % BASO % (test code = 706-2) 0.2 % GRAN MAT x10^3(ANC) (test code = 9731112991) 5.09 10*3/uL 1.88-7.09 IMM GRAN x10^3 (test code = 4289619612) 0.03 10*3/uL 0.00-0.06 LYMPH x10^3 (test code = 731-0) 3.23 10*3/uL 1.32-3.29 MONO x10^3 (test code = 742-7) 0.45 10*3/uL 0.33-0.92 EOS x10^3 (test code = 711-2) 0.12 10*3/uL 0.03-0.39 BASO x10^3 (test code = 704-7) 0.01-0.07 [facility] [id number] 05:50:00* Test Item Value Reference Range Interpretation Comme nts POCT PREG (test code = 1605) Negative On board controls acceptable with C Line (test code = 3574) Yes POCT PREG LOT # (test code = 3575) [id number] POCT PREG TEST DATE ( test code = 3576) 2024 Lab Interpretation (test cod e = 93799-2) Normal [facility] ABDOMEN PELVIS W [id number] 11:24:42ORDERING PHYSICIAN: MARK DOMINGUEZ CLINICAL HISTORY: Abdominal pain, epigastric COMPARISON: None available. TECHNIQUE: Helical CT images of the abdomen and pelvis obtained with IVcontrast. CT scan performed according to ALARA (As low as reasonablyachievable) principles. FINDINGS: Heart size is norm al. Lower lungs are clear. There are no effusions. Theliver, gallbladder, pancreas, spleen, adrenals, and kidneys areunremarkable. There is no hydronephrosis. Bladder is unremarkable. Ovarianfollicles are seen bilaterally. There are no dilated loops of bowel orbowel wall thickening. Appendix is normal. [facility] PULMONARY [id number] 11:21:40CTA CHEST WITH IV CONTRAST ORDERING PHYSICIAN: MARK DOMINGUEZ HISTORY: Chest pain COMPARISON: Chest x-ray 06/12/2023 TECHNIQUE: CTA of the chest with IV contrast. Standard and 3D and coronalMIP reconstructions performed. ?CT scan performed according to ALARA (Aslow as reasonably achievable) principles. FINDINGS: Heart size is normal. Aorta is normal in caliber. There is no aneurysm.There is no dissection. There is no pulmonary embolism. There are nopulmonary infiltrates or effusions. The bones are unremarkable.[facility] HospitalD-Cdpxp6566-71-63 09:34:10* Test Item Value Reference Range Interpretation Comments D-DIMER (test code = 9181053581) 0.65 See_Comment H [Automated message] The system which generated this result transmitted reference range: <0.41 ?g/mL (FEU). The reference range was not used to interpret this result as normal/abnormal. LUANN (test code = LUANN) This test may be used in conjunction with a clinical pretest probability (PTP) assessment model to exclude venous thromboembolism (VTE) in patients suspected of deep venous thrombosis (DVT) and pulmonary embolism (PE) A D-Dimer value less than 0.50 ?g/ml (FEU) has a negative predicative value of 96 to 100% (95% CI)and 97 to 100% (95% CI) as an aid in the diagnosis of deep vein thrombosis (DVT) and pulmonary embolism when there is low or moderate pretest probability of PE or DVT. D-Dimer values are expressed in initial fibrinogen equivalent units (FEU)" The assay results should be used with other information, including the clinical context, in forming a diagnosis. Lab Interpretation (test code = 96817-5) Abnormal [facility] 1 [id number] 09:11:52Exam: Chest (1 View), 06/12/2023 2:00 AM. Ordering Physician: MARK DOMINGUEZ. History: Chest pain. Technique: AP view of the chest. Technical Quality: Adequate. Comparison: Chest radiograph 04/02/2023. Findings: Normal cardiac silhouette size and pulmonary vascularity. ?No airspaceconsolidation, pleural effusion, or pneumothorax. Small chronic calcifiedgranulomas in the left upper lung zone. No acute osseous abnormality.[facility]. METABOLIC PANEL (55871)2023-04-02 23:16:21* Test Item Value Reference Range Interpretation Comme nts NA (test code = 6958445751) 139 mmol/L 135-145 K (test code = 3401642064) 3.3 mmol/L 3.5-5.0 L CL (test code = 1635315472) 105 mmol/L 98-108 CO2 TOTAL (test code = 6340684165) 25 mmol/L 23-31 AGAP (test code = 9026639990) 9 2-16 BUN (test code = 3473467929) 7 mg/dL 7-23 GLUCOSE (test code = 0631984584) 95 mg/dL 70-110 CREATININE (test code = 9539725146) 0.65 mg/dL 0.50-1.04 TOTAL BILI (test code = 0973006583) 0.4 mg/dL 0.1-1.1 CALCIUM (test code = 1091429158) 8.3 mg/dL 8.6-10.6 L T PROTEIN (test code = 8585717399) 7.7 g/dL 6.3-8.2 ALBUMIN (test code = 2259556590) 4.4 g/dL 3.5-5.0 ALK PHOS (test code = 8349272900) 57 U/L 34-122 ALTv (test code = 1742-6) 25 U/L 5-35 AST(SGOT) (test code = 6551368826) 28 U/L 13-40 eGFR (test code = 00551-4) 120.9 mL/min/1.73m2 CKD-EPI eGFR (2020). Assuming creatinine has been stable day-to-day for at least three months, the eGFR indicates Category G1 (>= 90 mL/min/1.73 m2) Lab Interpretation (test code = 70047-9) [facility]normal [facility] [id number] 23:10:00* Test Item Value Reference Range Interpretation Comme nts POCT PREG (test code = 1605) Negative On board controls acceptable with C Line (test code = 3574) Yes POCT PREG LOT # (test code = 3575) [id number] POCT PREG TEST DATE ( test code = 3576) 07/03/2024 Lab Interpretation (test cod e = 15596-7) Normal [facility] WITH [id number] 23:03:42* Test Item Value Reference Range Interpretation Comme nts WBC (test code = 6690-2) 3.75 See_Comment L [Automated messa ge] The system which generated this result transmitted reference range: 4.30 - 11.10 10*3/?L. The reference range was not used to interpret this result as normal/abnormal. RBC (test code = 789-8) 4.08 See_Comment [Automated messa ge] The system which generated this result transmitted reference range: 3.93 - 5.25 10*6/?L. The reference range was not used to interpret this result as normal/abnormal. HGB (test code = 718-7) 12.9 g/dL 11.6-15.0 HCT (test code = 4544-3) 37.1 % 35.7-45.2 MCV (test code = 787-2) 90.9 fL 80.6-95.5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 able to have BM today. She states pain is still a 'come and go' in the upper incisions-feels it is incisional and not deep. Message routed to Dr. Leigh for review. 34680-9Qsurpynnd encounter WiupIE6407-26-84V79:52:53Telephone encounter NoteTXT1.2.840.643431.1.13.104.2.7.2. 359878|[id number] for patient cdly73643-1WefsBVFFNIDLKKTDyapbqvpb C-CDA narrative xeny099127909SunidBritta RIVERS[address] Johnson [id number] ODSNVFJISRNRYOJGOBLHI7872-65-88Q35:52 :531.2.840.455209.1.72.3.15|1.2.840.1 68760.1.13.104.2.7.2.727879_[id number] 9 Britta Mao RN [facility] 2023-08-18 15:33:54 4686-85-08V32:33:54 Pt had surgery with Dr. Leigh on 08/16/23. Pt now calling stating that she is requesting a high strength ibuprofen be called in as she does not want to continue taking the hydrocodone that was called in for her. Please assist. 19361-1Vgkuthxng encounter PwycXI5746-78-30E18:35:16Telephone encounter NoteTXT1.2.840.967640.1.13.104.2.7.2. 818985|[id number] for patient dnbr98961-7EoiaTSYOQKJMCDVHoprpingb C-CDA narrative [id number] E Buckhe[address] [id number] XFCFEJDGFSERGBHLVTDLY4842-82-33L43:35 :161.2.840.877412.1.72.3.15|1.2.840.1 66537.1.13.104.2.7.2.727879_[id number] 2 Ronda Crowley [facility] 2023-08-17 08:10:50 0253-81-58N73:10:50 Mik Castro is a 33 year old femalePt is requesting call back in ref to procedure 08-16-23,states would like to discuss clarification information relayedPt can be reached at [phone] you 75724-1Oqthfhyop encounter FpwzHF4309-32-60I05:14:46Telephone encounter NoteTXT1.2.840.344196.1.13.104.2.7.2. 443422|[id number] for patient udcd63724-0RmbwQSRVGQXBIBDNopvwmgji C-CDA narrative [id number] Edison[address] [id number] BOVCBXFYOVFWMGYCGUOZJ1819-69-21U20:14 :461.2.840.039379.1.72.3.15|1.2.840.1 08009.1.13.104.2.7.2.727879_[id number] 7 Chas Saeed [facility] 2023-08-16 14:37:34 9849-96-91P23:37:34 CALLED AND UPDATED PT'S SPOUSE, GATITO, AT 1438 - RICHI SILVA 75463-2Xnnws GhldLX5718-07-53K87:36:19Nurse NoteTXT1.2.840.820309.1.13.104.2.7.2. 313352|[id number] for patient tikv66171-5Rwtiz NoteLNNARRATIVEFormatted C-CDA narrative [id number] C Damian RN[address] Gxke[id number] EBMKZLRGVJDYPUMIMPDDX6144-43-92V77:36 :191.2.840.910226.1.72.3.15|1.2.840.1 63098.1.13.104.2.7.2.727879_[id number] 6 Zhen Vance RN [facility] 2023-08-09 13:22:27 1704-67-88K94:22:27 Images from the original note were not included.Your procedure is at [facility] on 08/16/23. The address is [address] [place] [address], [address]. [facility] nursing staff will call you the workday before your procedure to let you know what time to arrive.On the day of your procedure, please go inside that door and check in at the desk.Please note: You may not travel home alone and that includes in a taxi or by bus. We must speak to your Responsible Adult (who will be picking you up) the morning of your procedure, before the start of your procedure. This person must be an adult over the age of 18 years of age.Do not eat any solid food after midnight the night before surgery. You may have sips of clear liquids such as water, gatorade, and sprite up until two hours before your scheduled procedure.You may take your medications with a sip of water as directed by physician.Anticoagulants will be per physician guidance. Medication Note(s)/Instructions:n/aPending screening, we may test for COVID. If a patient tests positive, their cases are cancelled and/or rescheduled. COVID SCREENING NOTE: Denies COVID symptoms, no testing required.Additional requests, questions, concerns:CB number provided.Patient verbalized understanding of pre-op instructions and voiced no further questions at this time. 78100-0Bchph BgspEF1409-84-96D15:30:14Nurse NoteTXT1.2.840.074231.1.13.104.2.7.2. 542954|[id number] for patient stpb61746-5Bdebx NoteLNNARRATIVEFormatted C-CDA narrative textUT[address] Se[id number] ECNUVBWRWNFXZYBQJNLKB1872-95-86C27:30 :141.2.840.000305.1.72.3.15|1.2.840.1 63075.1.13.104.2.7.2.727879_[id number] 8 [facility] 2023-08-09 09:39:57 3891-78-11K60:39:57 Echo on 08/11. 60675-3Kjiehrjqb encounter AhiwFF7218-81-62T86:40:07Telephone encounter NoteTXT1.2.840.182700.1.13.104.2.7.2. 945952|[id number] for patient fmig30318-3IfnwCFGGXGSCIIBHpcohjlnn C-CDA narrative text[id number] BCWXJSSPMBRMXSALIAZBD9956-24-63P34:40 :071.2.840.081770.1.72.3.15|1.2.840.1 02278.1.13.104.2.7.2.727879_[id number] 3 [facility] 2023-08-08 16:57:35 1830-17-69E47:57:35 The following patient is scheduled for Cholecystectomy with Zonia Leigh at [facility] Surgery Department. The procedure will be scheduled within 10 days and requires Cardiac clearance prior to the procedure.Please submit the following:Note indicating Cardiac clearance risk level2. Most recent office note date3. Recent tests (if not accessible in [facility]): Labs, EKG, Echo, etc4. Information on implantable devices (pacemaker, AICD, last interrogation, device type with response to magnet and most recent EP report)5. Perioperative recommendations /6. Optimization for surgery, any needs for cardiac testing prior to having surgery7. Patient has reported not taking anticoagulation. Please provide instructions for holding prior to procedure if neededThClau martinez LVN 93669-9Ijsvjjpln encounter SivvPB6909-96-71M64:59:21Telephone encounter NoteTXT1.2.840.840068.1.13.104.2.7.2. 177117|[id number] for patient bqxy12881-4MqkjURHATBNQHSNNkpasfgag C-CDA narrative jibx610763251Hzihhk Mulcare [address]G[id number] YRHPWKEWPFLFRZDPEHRZV5283-44-82S42:59 :211.2.840.645001.1.72.3.15|1.2.840.1 32250.1.13.104.2.7.2.727879_[id number] 4 Clau Nolasco LVN [facility] 2023-08-05 03:01:51 6870-68-04U01:01:51 Pt given printed and verbal discharge instructions regarding biliary colic, transaminitis.Encouraged hydration,Prescriptions provided:bentyl, zofran, pepcidDiscussed ibuprofen and to take with food to avoid GI distress.Pt verbalized understanding of instructions, pt awake alert oriented, resp reg unlabored, skin w/d, color appropriate for race, moves all ext well,pt encouraged to follow up with pcp.Advised to seek medical attention for new/prolonged/worsening of symptoms,Symptoms improvedNo adverse reaction to meds given in ER noted upon dischargePIV d'cd, dressing to site, catheter in tact.Awake, alert oriented, resp reg unlabored, skin w/d, pt leaving amb with steady gait, in no apparent distress, accompanied by grandmother. 27509-0Ylwphwjvq department OlodWC9038-96-28S89:03:01Emergency department NoteTXT1.2.840.731396.1.13.104.2.7.2. 418998|[id number] for patient pdow97995-9PeemCOACNWIABCBGuvixvlgj C-CDA narrative [id number] Arzola RNUT[address] Qdup[id number] NWTNFGYXKAWPLUSTSUSSC3914-13-19P54:03 :011.2.840.592149.1.72.3.15|1.2.840.1 41944.1.13.104.2.7.2.727879_[id number] 3 Nalini Arzola RN [facility] 2023-08-05 01:18:28 7471-70-02O17:18:28 Report to Dariusz STODDARD. 19142-7Hghxzpcup department OtylSS4276-93-69M26:18:35[facility] NoteTXT1.2.840.862641.1.13.104.2.7.2. 141469|[id number] for patient bqon67003-0VdweHTBKKWATEMINxccictlr C-CDA narrative text[id number] VRSVBGKYQUFILHYNUYUQY1381-49-08D03:18 :351.2.840.079304.1.72.3.15|1.2.840.1 26009.1.13.104.2.7.2.727879_[id number] 7 [facility] 2023-08-05 00:33:36 8843-35-68W92:33:36Summary: US Called US and left msg 50038-2Wycrxudhr epesPU3145-25-87F48:33:54Procedure noteTXT1.2.840.543015.1.13.104.2.7.2. 767555|[id number] for patient adms60353-0QcgiQBBVKFWHKIBThulizvap C-CDA narrative [id number] [id number] UHHINIHBGTHCLZFSDGLUN9593-63-25N06:33 :541.2.840.564730.1.72.3.15|1.2.840.1 36953.1.13.104.2.7.2.727879_[id number] 4 Ita Mayorga [facility] 2023-08-04 23:05:12 6990-72-18L56:05:12 Pt to ED [place] constant CP since 1321-8879. Pt recently seen and DC from ED for same sxs pt states the pain is the same. Pt states she was eating when pain started. Describes it as tight and sharp. Pt is restless and anxious. Pt states she has a cardiology appt next week.Took 2 tylenol approx 2100. 03591-0Mozavifyd department Triage baotID3963-52-36X71:13:05[facility] Triage noteTXT1.2.840.742935.1.13.104.2.7.2. 623600|[id number] for patient rutx81988-9Sranlcujf department NoteLNNARRATIVEFormatted C-CDA narrative [id number] R Potter RN[address]Un[id number] NQXAITOIMDCEGEKOZNJMJ7526-16-77U62:13 :051.2.840.971056.1.72.3.15|1.2.840.1 97591.1.13.104.2.7.2.727879_[id number] 9 Sharonda Jo RN [facility] 2023-07-12 04:14:01 9237-58-46W84:14:01 Pt given printed and verbal discharge instructions regarding chest pain.Pt verbalized understanding of instructions, pt awake alert oriented, resp reg unlabored, skin w/d, color appropriate for race, moves all ext well,pt encouraged to follow up with pcp & cardiology.Advised to seek medical attention for new/prolonged/worsening of symptoms,Symptoms improvedNo adverse reaction to meds given in ER noted upon dischargePIV d'cd, dressing to site, catheter in tact.Awake, alert oriented, resp reg unlabored, skin w/d, pt leaving amb with steady gait, in no apparent distress. 70016-6Ptzasilxs department NnsmAS0530-72-79I20:15:08[facility] NoteTXT1.2.840.035702.1.13.104.2.7.2. 621904|[id number] for patient fplt63958-9SfsbIYUQGOLXFTEEmnlwqgtk C-CDA narrative [id number] A. Campbell RN[id number] NCJWTPZKLCFTAHIZIBOFD8417-58-05X38:15 :081.2.840.179541.1.72.3.15|1.2.840.1 36469.1.13.104.2.7.2.727879_571 4 Nalini Arzola RN [facility] 2023-07-12 00:30:28 0342-12-24D10:30:28 Pt to ED via [facility] intermittent panic attacks and chest tightness. Pt states she was having relations with her bola and she began to have episodes of SOB, nausea, panicked emotions, and chest tightness. No home medications. Hx of elevated D-dimer and anxiety.325mg aspirin given en route, 20g LAC. 44896-3Rpnwqvnyv department Triage xmzvSO6579-50-34K26:39:31[facility] Triage noteTXT1.2.840.998354.1.13.104.2.7.2. 755526|[id number] for patient rthl92143-9Mbicoevmu department NoteLNNARRATIVEFormatted C-CDA narrative [id number] Hoover RN[id number] PIIMWGQXXENEYMZXYQRHY6901-36-32U70:39 :311.2.840.942168.1.72.3.15|1.2.840.1 42491.1.13.104.2.7.2.727879_[id number] 6 Sharonda Hoover RN [facility] 2023-06-12 07:08:50 4770-29-98H63:08:50 Educated on dietary changes, pt ate pizza with pepperoni yesterday, bologna the day before has been eating pineapple daily, states she noticed belching and burning after, written/verbal d/c instructions, erx x2, out of er no distress [address] HhykXZ0871-89-10V73:10:19[facility] NoteTXT1.2.840.155385.1.13.104.2.7.2. 587215|[id number] for patient vicr63714-7PgixWNMCUGOLAFZIwjxlteio C-CDA narrative [id number] M. Barton RN[address] Ekpd[id number] GLPVUGBFUFFEVZZRPFWTY4741-63-82W33:10 :191.2.840.772233.1.72.3.15|1.2.840.1 67495.1.13.104.2.7.2.727879_[id number] 2 Mayra Gillespie RN [facility] 2023-06-12 06:47:09 4928-77-11X80:47:09 Report given to Alda STODDARD 16359-0Cupaeyxcc[address] SyceBG1232-73-69K59:47:20[facility] NoteTXT1.2.840.819517.1.13.104.2.7.2. 735493|[id number] for patient cuiy76459-6QtieTSJJMVJTTTLJzendbdbh C-CDA narrative [id number] A Diaz RN[address] Bws[id number] BIHWZLUFZRGFYWTVRXVUW8322-09-90F40:47 :201.2.840.506142.1.72.3.15|1.2.840.1 96779.1.13.104.2.7.2.727879_769960 7 Meredithadrian Forrester RN [facility] 2023-06-12 01:45:33 2131-57-80Y32:45:33 Pt states that around 2214 she began having pain to the left upper back and than to left rib area and left breast. 44149-9Yvowndjzw department Triage zgznMR6946-07-95L91:49:02[facility] Triage noteTXT1.2.840.414105.1.13.104.2.7.2. 092859|[id number] for patient qjds50260-9Dryonuhir department NoteLNNARRATIVEFormatted C-CDA narrative text[address] StreetHx[id number] VQUJFLUWSEGPXMUFHANKC4591-34-11K41:49 :021.2.840.473461.1.72.3.15|1.2.840.1 11248.1.13.104.2.7.2.727879_762091 8 [facility] 2022-12-16 18:26:49 5731-95-49T98:26:49 PT D/C home. GCS15, VS stable, no ataxia noted. Given no prescriptions and D/C paperwork. S/S relieved at this time. Pt ambulatory at time of discharge. Pt educated on dysfunctional uterine bleeding, med usage, follow up care with OB, s/s worsening condition. Pt verbalized understanding. Work/school note was not given. 86711-1Zfppmffnc department EifkZB0097-81-51Q55:27:43[facility] NoteTXT1.2.840.466205.1.13.104.2.7.2. 638524|[id number] for patient ujgh14743-4LiuuDV878158532Lspridj Kellee STODDARD[id number] IXJZLYLLANANOIIDBKGFN1881-43-60W56:27 :431.2.840.394260.1.72.3.15|1.2.840.1 23293.1.13.104.2.7.2.727879_[id number] 1 Chel Goodson RN [facility] 2022-12-16 14:21:00 7070-59-32Y44:21:00 Patient reports that starting last night she began to have feelings of indigestion. States that she is having a pain today in her chest that travels from her left arm and down to her left leg that comes and goes. Reports that the symptoms are worse when she is layingdown. Also reports that she has been having vaginal bleeding. 57296-2Nyyjasskj department Triage lgqlPH7041-85-52Q67:23:03[facility] Triage noteTXT1.2.840.152719.1.13.104.2.7.2. 094850|[id number] for patient khqs75790-3Qfrelgmru department [id number] M Hayes RNUT[id number] VUCQIKKGSRDPFIMVHCYZL7904-43-59F22:23 :031.2.840.192751.1.72.3.15|1.2.840.1 56395.1.13.104.2.7.2.727879_[id number] 3 Jazzmine Mondragon RN [facility]
[2023-10-06] MEDS ORDERED: KETOROLAC 30 MG/ML INJ ONE (23:28)
[2023-10-06] MEDS ORDERED: CYCLOBENZAPRINE 10 MG TAB ONE (23:29)
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
[2023-10-07 00:41] VITALS: BP 117/90; TEMP 97.2; O2SAT 99
--- NOTE | 2023-10-07 14:50 | RAD REPORT ---
EXAM DESCRIPTION: RAD - Shoulder Right 2 View - 10/06/2023 11:22 pm CLINICAL HISTORY: PAIN COMPARISON: None. FINDINGS: 2 views of the right shoulder. No acute fracture or dislocation. Normal osseous m ineralization. Calcification in the acromiohumeral interval. IMPRESSION: 1. No acute fracture or dislocation. 2. Calcification in the acromiohumeral interval may represent calcific tendinitis. Electronically signed by: Sebastián Black DO 10/06/2023 11:39 PM CDT 4ZDM Due to temporary technical issues with the PACS/Fluency reporting system, reports are being signed by the in house radiologists without review as a courtesy to insure prompt reporting. The interpreting radiologist is fully responsible for the content of the report.
== END 2023-10-07 00:26 | disposition home or self-care (01) ==
LOC: ER 22:25
DX: M54.12 Radiculopathy, cervical region (principal); V49.49XA Driver injured in collision with other motor vehicles in traffic accident, initial encounter
CPT/HCPCS: 96372; 99284